=== PATIENT | female | born 1980 | race Caucasian/White ===

== ENCOUNTER 2020-11-09 10:39 | Outpatient (REF) | payer BC, SELFPAY ==
--- NOTE | 2020-11-09 10:15 | PAPFT_PTH ---
PATIENT: Shanice Del Rio LOC: [facility] U#:[id number] AGE/SX: 40/F ROOM: RE11/09/[address]: Swati Hugo DO : 1980 BED: DIS: 11/09/2020 SPEC #: [id number] RECD: 11/09/20 12:53 STATUS: FER REQ #: [id number] SARAH BETH: 11/09/20 10:[address]: Swati Hugo DEPT: [facility] Cytology RECD BY: Candi Ornelas ENTERED: 11/09/20 12:53 SP TYPE: PAPFT OTHR DR: Linnea Esposito Tissues: 1 - CX/ENDOCX FOR PAP SMEARS Procedures: PAP THIN PREP/UVM Screening HPV DNA PROBE Comments: [id number]
== END 2020-11-09 10:40 | disposition home or self-care (01) ==
LOC: LBN 10:39
PROVIDERS: Visit Provider Obstetrics & Gynecology
DX: Z12.4 Encounter for screening for malignant neoplasm of cervix (principal); Z11.51 Encounter for screening for human papillomavirus (HPV)
CPT/HCPCS: 88142; 87624

== ENCOUNTER 2020-12-03 00:41 | Outpatient (CLI) | payer BC, SELFPAY ==
--- NOTE | 2020-12-03 11:30 | DI.MAMMO_ITS ---
Exam(s) MAMMO SCREENING EXAM: MAMMO SCREENING CLINICAL HISTORY: screening TECHNIQUE: Mammograms were interpreted according to the usual protocol including computer analysis w [employer] CAD system, tomosynthesis and C-view imaging. COMPARISON: FINDINGS: The breasts are extremely dense. No dominant mass is identified in either breast. There is asymmetr y of the breast parenchyma with increased radiodensity in the upper outer quadrant of the right breas t compared to the left. There is a grouping of calcifications of the medial retroareolar portion of the right breast which co ntains 4 or 5 microcalcifications, these are not ideally visualized but are not clearly acinar microc alcifications. Leodan-like forms may be present. Additional evaluation with magnification views of thi s area is suggested. Additionally right breast ultrasound is recommended to evaluate the upper outer quadrant of the right breast for possible mass due to the asymmetry noted. IMPRESSION: additional mammographic views of the right breast and right breast ultrasound recommended as describ ed above. BI-RADS Category 0 - Assessment Incomplete: Need additional imaging evaluation Breast Density - Category D - Extremely dense
== END 2020-12-03 01:01 ==
PROVIDERS: Visit Provider Obstetrics & Gynecology
DX: Z12.31 Encounter for screening mammogram for malignant neoplasm of breast (principal); R92.8 Other abnormal and inconclusive findings on diagnostic imaging of breast; R92.0 Mammographic microcalcification found on diagnostic imaging of breast
CPT/HCPCS: 77063; 77067

== ENCOUNTER 2020-12-22 00:37 | Outpatient (CLI) | payer BC, SELFPAY ==
--- NOTE | 2020-12-22 10:30 | DI.MAMMO_ITS ---
Exam(s) MG MAMMO SCREEN CALL BACK UNI US BREAST RT COMPLETE EXAM: US BREAST RT COMPLETE CLINICAL HISTORY: MICROCALCIFICATIONS RT BREAST TECHNIQUE: Ultrasound performed using standard protocol. COMPARISON: US [facility] OB ULTRASOUND from 10/20/2014 FINDINGS: Additional mammographic views of the right breast and right breast ultrasound interpreted in conjunct ion. These examinations were obtained to evaluate microcalcifications identified on recent baseline examination in the medial retroareolar portion of the breast. Magnification spot compression views s how grouping of 5 microcalcifications, these are somewhat irregular in shape and variable in size. N eoplastic disease is a diagnostic possibility with this appearance. Breast ultrasound was performed of the entire right breast. No mass identified. No calcifications i dentified on ultrasound. There is an incidental 8 millimeter in diameter cyst simple cyst about 7 cm from the nipple in the 8 o'clock position in the breast. IMPRESSION: Suspicious microcalcifications of the right breast without ultrasound correlate. Biopsy is recommend ed, stereotactic technique recommended. BI-RADS Cat 4 - Suspicious Abnormality: Biopsy should be considered Breast Density - Category D - Extremely dense DATA REPOSITORY:
--- NOTE | 2020-12-22 11:00 | DI.US_ITS ---
Exam(s) MG MAMMO SCREEN CALL BACK UNI US BREAST RT COMPLETE EXAM: US BREAST RT COMPLETE CLINICAL HISTORY: MICROCALCIFICATIONS RT BREAST TECHNIQUE: Ultrasound performed using standard protocol. COMPARISON: US [facility] OB ULTRASOUND from 10/20/2014 FINDINGS: Additional mammographic views of the right breast and right breast ultrasound interpreted in conjunct ion. These examinations were obtained to evaluate microcalcifications identified on recent baseline examination in the medial retroareolar portion of the breast. Magnification spot compression views s how grouping of 5 microcalcifications, these are somewhat irregular in shape and variable in size. N eoplastic disease is a diagnostic possibility with this appearance. Breast ultrasound was performed of the entire right breast. No mass identified. No calcifications i dentified on ultrasound. There is an incidental 8 millimeter in diameter cyst simple cyst about 7 cm from the nipple in the 8 o'clock position in the breast. IMPRESSION: Suspicious microcalcifications of the right breast without ultrasound correlate. Biopsy is recommend ed, stereotactic technique recommended. BI-RADS Cat 4 - Suspicious Abnormality: Biopsy should be considered Breast Density - Category D - Extremely dense DATA REPOSITORY:
== END 2020-12-22 00:57 ==
PROVIDERS: Visit Provider Obstetrics & Gynecology
DX: R92.8 Other abnormal and inconclusive findings on diagnostic imaging of breast (principal); R92.0 Mammographic microcalcification found on diagnostic imaging of breast
CPT/HCPCS: 76642; 77063; 77067

== ENCOUNTER 2023-09-10 15:03 | Emergency (ER) | payer BC, SELFPAY ==
[2023-09-10 15:12] VITALS: BP 140/100; PULSE 115; RESP 18; TEMP 36.8
--- NOTE | 2023-09-10 17:06 | W.ED.GENAD ---
Discharge Plan Disposition Patient Disposition: Home Condition: Stable Discharge Details Chief Complaint: Orthopedic Clinical Impression: Foot pain, right Primary Care Provider: Linnea Esposito ED Provider: Tino Sterling Home Meds and New Rx's Prescriptions: No Action No Known Home Meds Discharge Instructions Additional Instructions: Your x-rays do not show any concerning findings at this time. I suspect you have plantar fasciitis which is inflammation of the soft tissues and tendons in your foot. Use the crutches that you have as needed You can take 600 mg of ibuprofen every 6 hours Follow-up with your primary care provider or express care if you are not improving within 2 weeks If you feel more ill or have new symptoms such as high fevers or if foot becomes red and hot to touch return to the emergency department HPI General Mode of arrival: ambulatory. Date/Time Provider Initiated Documentation: 09/10/23 15:16. Limitations to Documentation: no limitations. Information obtained by: patient. History of Present Illness 43 year old F presents to the emergency department with the chief complaint of right foot discomfort/swelling, described as moderate, Quality is described as aching, and is localized to the right and lower extremity. Patient reports no radiation. Patient started experiencing this day(s) (5) and it has been constant. Rest improves symptom(s), Movement worsens symptoms . Patient notes no other symptoms.. Patient did receive the following treatments prior to arrival, none Related Data Home Medications ?Medication ?Instructions ?Recorded ?Confirmed Unknown [No Known Home Meds] 11/09/20 Allergies Allergy/AdvReac Type Severity Reaction Status Date / Time No Known Allergies Allergy Unverified 12/18/14 11:12 General Stated Complaint: Orthopedic BRITTON: 4 Review of Systems All systems reviewed & are unremarkable except as noted in HPI and below Constitutional Constitutional: Denies chills, Denies fever(s) and Denies weakness Cardiovascular Cardiovascular: Denies chest pain Respiratory Respiratory: Denies cough Gastrointestinal Gastrointestinal: Denies vomiting Neurologic Neurologic: Denies weakness Exam Const General: no acute distress Orientation: alert [facility] Head: normal to inspection Ears: external ears normal General nose exam: external nose normal Mouth: moist mucous membranes Eyes General: appearance normal, both eyes and all related structures Neck Neck: normal visual inspection Resp Effort & Inspection: normal respiratory effort and able to speak in complete sentences Cardio Rate: regular rate Skin General skin exam: no rashes or lesions noted Neuro General: patient alert and patient oriented x3 Extrem General: full ROM and capillary refill normal Psych Mental Status: mental status grossly normal Course Vital Signs Vital signs: Vital Signs Temperature 36.8 C 09/10/23 15:12 Pulse 115 H 09/10/23 15:12 Respiratory Rate 18 09/10/23 15:12 Blood Pressure 140/100 H 09/10/23 15:12 Temperature 36.8 C 09/10/23 15:12 Temperature Source Temporal Artery Scan 09/10/23 15:12 Pulse 115 H 09/10/23 15:12 Respiratory Rate 18 09/10/23 15:12 Blood Pressure 140/100 H 09/10/23 15:12 Medical Decision Making 43-year-old female who denies any significant past medical history comes in with right foot pain since last Sunday. She says on Sunday she had to wear shoes that were too small for her and her right foot is been hurting since. She has had some mild swelling as well of the foot. Denies any other systemic symptoms. She appears well on exam speaking in full sentences. She has swelling on the plantar surface without erythema or warmth mild tenderness, no full range of motion of the ankle and toes, intact sensation and pulses, no calf tenderness. Suspect plantar fasciitis versus stress injury, will obtain x-rays to exclude fracture. No findings on exam or history to suggest infectious etiology and her leg is not swollen has no calf tenderness so doubt DVT. negative xray, patient stable. suspect plantar fascitis, will have her f/u with pcp and return precautions given Differential Diagnosis Differential Diagnosis: Plantar fasciitis, stress injury, Imaging Data Radiologic Study: Attestation: I personally reviewed and interpreted this imaging study as follows: Imaging: X-Ray Radiologist's impression: No acute findings Quality:SDOH Health Related Social Needs: No Data to Display PFSH All Active Problems (Updated 09/10/23 @ 18:02 by Tino Sterling MD) Foot pain, right (Acute) Breast calcification, right (Acute) Abnormal mammogram of right breast (Acute) Heavy menstrual bleeding (Acute) Well woman exam with routine gynecological exam (Acute) Family History Mother Colorectal cancer Social History Smoking/Tobacco Use Status: Never Smoking risk assessment performed?: Yes Alcohol Intake: never Housing: apartment Do you feel safe at home: Yes Do you feel safe in your relationship?: Yes
--- NOTE | 2023-09-10 17:42 | DI.RAD_ITS ---
Exam(s) XR FOOT RT COMPLETE EXAM: XR FOOT RT COMPLETE CLINICAL HISTORY: foot pain. TECHNIQUE: 2D digital imaging was performed. Three views. COMPARISON: No exams were available for comparison FINDINGS: BONES: No acute fracture is present. No bony destructive lesion is seen. Small enthesophyte at Achil les insertion. JOINTS: No dislocation present. SOFT TISSUE: Normal. IMPRESSION: Unremarkable radiographs of the right foot. DATA REPOSITORY: RADIATION DOSE DELIVERED:
== END 2023-09-10 18:22 | disposition home or self-care (01) ==
PROVIDERS: Emergency Provider Emergency Medicine
DX: M79.671 Pain in right foot (principal)
CPT/HCPCS: 99283; 73630

== ENCOUNTER 2024-02-15 18:44 | Emergency (ER) | payer BC, SELFPAY ==
[2024-02-15 18:47] VITALS: BP 152/86; PULSE 122; RESP 18; TEMP 36.6; O2SAT 98
--- NOTE | 2024-02-15 19:07 | W.ED.GENAD ---
Discharge Plan Disposition Patient Disposition: Home Condition: Stable Discharge Details Clinical Impression: Injury of conjunctiva and corneal abrasion of right eye w/o FB Primary Care Provider: None,None ED Provider: Larry Castro Home Meds and New Rx's Prescriptions: No Action No Known Home Meds Discharge Instructions Instructions: Erythromycin (Ophthalmic), Corneal Abrasion ED Additional Instructions: You were seen in the emergency department for the corneal abrasion of your right eye. Please use the provided erythromycin ophthalmic ointment 4 times per day for the next 5 days. Please use therapeutic dosing of Tylenol (acetamenophen) & Advil (ibuprofen) in an alternating fashion as follows: Take 1000mg of Tylenol every 6 hours without missing doses- that is 4 times per day. Half-Way in between the Tylenol dosings, take 400-600mg of Advil also on a 6 hour schedule, that is also 4 times per day. The daily maximum dosing of Tylenol is 4000mg, and the daily maximum dosing of Advil is 2400mg. This is safe to do for weeks. Please note that some common cold medications & prescription pain medications may contain acetamenophen and you need to read OTC drug labels and factor that in to maximum daily dosings. It may be more comfortable to patch the eye at night and use cool compresses for relief, use the tetracaine drops 2 drops before bed tonight and 1 drop in the morning but then throw the medication out as we discussed Discharge Data Discharge Date/Time-TO BE ENTERED AT DEPARTURE: 02/15/24 19:55 HPI General Date/Time Provider Initiated Documentation: 02/15/24 18:57. HPI Narrative: 43 year-old female presents to ED today by POV/ambulating with a chief complaint of injury to R eye, was trimming moi and a branch hit her with onset at 1645 today. Quality described as mild blurry vision, eye irritation, no radiation to vision loss, discharge, headache. Severity is described as moderate. Palliating factors include nothing specific attempted. Provoking factors include nothing specific. Patient not anticoagulated. Related Data Home Medications ?Medication ?Instructions ?Recorded ?Confirmed Unknown [No Known Home Meds] 11/09/20 02/15/24 Allergies Allergy/AdvReac Type Severity Reaction Status Date / Time No Known Allergies Allergy Unverified 02/15/24 18:49 General Stated Complaint: EyeProblem BRITTON: 4 Review of Systems All systems reviewed & are unremarkable except as noted in HPI and below Exam Narrative Exam Narrative: GENERAL APPEARANCE: Well-nourished, non-toxic, awake and alert, atraumatic, no acute distress. SKIN: Warm, pink, dry, intact, without rashes/lesions/ulcerations. HEAD: Normocephalic, atraumatic, normal hair distribution for gender/age. EYES: Normal conjunctiva, no exudates on lids/lashes, no discharge, no globe rupture, vision grossly intact, there is a large corneal abrasion centrally to the right eye, left eye benign ENT: Nares patent, no circumoral cyanosis, no facial swelling NECK: Supple, trachea midline, painless cervical ROM. LUNGS/CHEST: Non-labored respirations, normal A/P diameter, symmetrical expansion, no chest wall deformity HEART (CV/PV): No peripheral edema, no JVD. ABDOMEN: Soft, non-distended, no guarding. MSK: Normal ROM, no swelling/deformity to bilateral UEs or LEs, moving all extremities without weakness, no cyanosis, spine midline without tenderness, normal curvature. NEURO: Mental Status AAOx4 - alert to person, place, time, events No facial droop, no forehead involvement. Motor: No focal weakness - strength 5/5 in bilateral UEs and LEs, proximal and distal, symmetric. Sensory: sensation intact to light touch globally. Gait normal: patient ambulated without ataxia into ED room. PSYCH: euthymic, cooperative, pleasant, appropriate speech Course Vital Signs Vital signs: Vital Signs Temperature 36.6 C 02/15/24 18:47 Pulse 122 H 02/15/24 18:47 Respiratory Rate 18 02/15/24 18:47 Blood Pressure 152/86 H 02/15/24 18:47 Pulse Oximetry 98 02/15/24 18:47 Temperature 36.6 C 02/15/24 18:47 Temperature Source Oral 02/15/24 18:47 Pulse 122 H 02/15/24 18:47 Respiratory Rate 18 02/15/24 18:47 Blood Pressure 152/86 H 02/15/24 18:47 Blood Pressure Position Sitting 02/15/24 18:47 Pulse Oximetry 98 02/15/24 18:47 Oxygen Delivery Method Room Air 02/15/24 18:47 Oxygen Flow Rate 0 02/15/24 18:47 Pain Level 0 02/15/24 18:47 Medical Decision Making This dictation utilizes [id number] dictation software and may contain unedited grammatical errors. 43 year-old female presents to ED today by POV/ambulating with a chief complaint of injury to R eye, was trimming moi and a branch hit her with onset at 1645 today. Quality described as mild blurry vision, eye irritation, no radiation to vision loss, discharge, headache. Severity is described as moderate. Palliating factors include nothing specific attempted. Provoking factors include nothing specific. Patients' medical history: noncontributory. Family and social history: noncontributory. Pertinent exam findings / vital signs include large corneal abrasion centrally to the right eye, vision grossly intact. Differential / pathologies of concern include corneal abrasion, not globe rupture, not vision loss, not foreign body. Diagnostic studies of: -Fluorescein eye exam. Interventions of: -Tdap, erythromycin ointment. ED Course/Assessment/Plan: 43-year-old female presents after getting hit in the eye with a branch that she was trimming moi, has a large corneal abrasion, no vision compromise. Started on erythromycin ointment and updated Tdap, strict return criteria for any vision loss or discharge despite. Findings not consistent with globe rupture, vision loss. Disposition of injury of conjunctiva and corneal abrasion of right eye w/o foreign body. Patient verbalized understanding of the plan and return to ED criteria and engaged in shared decision making. Medical Records Medical records reviewed: Yes I reviewed the patient's medical records. Quality:SDOH Health Related Social Needs: No Data to Display PFSH All Active Problems (Updated 02/15/24 @ 19:18 by DARIEL Whittaker) Injury of conjunctiva and corneal abrasion of right eye w/o FB (Acute) Breast calcification, right (Acute) Abnormal mammogram of right breast (Acute) Heavy menstrual bleeding (Acute) Well woman exam with routine gynecological exam (Acute) Family History Mother Colorectal cancer Social History Smoking/Tobacco Use Status: Never Smoking risk assessment performed?: Yes Alcohol Intake: never Drug use: Never Substance use type: does not use Housing: apartment Do you feel safe at home: Yes Do you feel safe in your relationship?: Yes
[2024-02-15] MEDS: Diph,Pertuss(Acell),Tet Vac/Pf 0.5 ML SYR IM (19:08)
[2024-02-15] MEDS: Tetracaine 0.5% 4 ML BTL OP (19:10)
[2024-02-15] MEDS: Fluorescein STRIPS 100/BOX 1 MG OP (19:13)
[2024-02-15] MEDS: Erythromycin Ophth Oint 3.5 GM TUBE OP (19:19)
--- OUTSIDE RECORDS SUMMARY | 2024-02-15 19:42 | XMS_ITS | Encounter Summary ---
Author Organization [facility] Address [address] [place] [address] Care Team Providers Care Industrial Mechanic Name Role Phone Unavailable Primary Care Provider Unavailabl e Encounter Details Date Type Department Care Team (Late st Contact Info) Description 10/30/2007 Before PRISM Converted Visit (Maple) [facility] - Maple conversion [address] [place] [address] Domonique Dubon, DAMARIS Social History Tobacco Use Types Packs/Day Years Used Date Smoking Tobacco: Never Assessed Comments Unknown Sex and Gender Information Value Date Recorded Sex Assigned at Not on file Legal Sex Female 18:38 EST Gender Identity Not on file Sexual Orientation Not on file documented as of this encounter Plan of Treatment Not on file documented as of this encounter Procedures Procedure Name Priority Date/Time Associated Diagnosis Comments CYTOPATHOLOGY Routine 10/30/2007 0:00 EDT documented in this encounter Results * CYTOPATHOLOGY (10/30/2007 0:00 EDT) Pathology Report: CYTOPATHOLOGY REPORT ? Reports generated via electronic interface contain original data; ? however they are lacking the format of the original report. ? Caution should be taken when reading/interpreti ng unformatted reports. ? Name: ? BUCK, KATI ? Accession #: ? [id number] ? : ? 1980 (Age: 27) ??F ?Collect Date: ? 10/30/2007 ? Location: ? [facility] ? Receive Date: ? 10/31/2007 ? Provider: ?DOMONIQUE M AMRITA PROCESSING SUPERVISOR ? Copy to: ? Specimen/Source: ?ThinPrep Pap Test, Cervix/Endocervix, processed on [facility] ThinPrep Imaging System, with manual evaluation ? Last Menstrual Period: ? 09/09/08 ? Other: ? HPVA - HPV testing requested if ASC-US on the current ThinPrep Pap test. ? SPECIMEN ADEQUACY ? Satisfactory for Evaluation ? - transformation zone component present ? - scant squamous epithelial component ? GENERAL CATEGORIZATION ? Negative for Intraepithelial Lesion or Malignancy ? Document reviewed and electronically signed by: ? [place], [place](ASCP) ? Report Date: ??11/04/2007 14:10 ? End of Report ? CRISTINA BARNETT 10/30/2007 10/31/2007 us Domonique Dubon PROCESSING SUPERVISOR PATHOLOGY ORDERABLES Final Re sult CRISTINA BARNETT [address] [place] [address] documented in this encounter Visit Diagnoses Not on filedocumented in this encounter
--- OUTSIDE RECORDS SUMMARY | 2024-02-15 19:42 | XMS_ITS | Clinical Summary ---
Author Organization [facility] [place] [address] Care Team Providers Care Ag Service Manager Name Role Phone Swati Hugo DO Primary Care Provider [phone] Social History Tobacco Use Types Packs/Day Years Used Date Smoking Tobacco: Never Assessed Sex and Gender Information Value Date Recorded Sex Assigned at Not on file Gender Identity Not on file Sexual Orientation Not on file Plan of Treatment Health Maintenance Due Date Last Done Comments HIV screen 1998 Hepatitis C Screening 1998 Hepatitis B vaccine (0-59 yrs) (1) 1999 Tetanus/Diphtheria/Pertussis Vaccines (1 - Tdap) 03/24 HPV test 2010 PAP Smear 2010 Breast Cancer Share Decision Needed 2020 Breast Cancer screening 2020 Covid-19 Vaccine ( - 2023-25 season) 2023 Influenza (Flu) vaccine (1 o f 1 - Influenza standard series) 10/07/2023 Medical Devices Implanted Type Area Funeral Director And Embalmer Device Identifier Shelf Expiration Date Model / Serial / Lot Breast Clip- Implanted:Qty: 1 on 12/31/2020 by Jolanta Woo MD Breast Clip Right: Breast SMARK-EVIV [id number] Description:SECURMARK FOR EV MOISES TITANIUM MARKER - CYLINDER Care Teams Ag Service Manager Relationship Specialty Start Date End Date Swati Hugo DO [facility] [place] [id number] PCP - General Obstetrics and Gynecology 12/31/20
--- OUTSIDE RECORDS SUMMARY | 2024-02-15 19:42 | XMS_ITS | Encounter Summary ---
Author Organization [facility] Address [address] [place] [address] Care Team Providers Care Enrollment Management Director Name Role Phone Unavailable Primary Care Provider Unavailabl e Encounter Details Date Type Department Care Team (Latest Contact Info) Description 05/12/2014 10:58 EDT - 05/12/2014 23:59 EDT Hospital Encounter [facility] - [address] [address] Unknown, Provider, MD Discharge Disposition: Home or Self Care Social History Tobacco Use Types Packs/Day Years Used Date Smoking Tobacco: Never Assessed Comments Unknown Sex and Gender Information Value Date Recorded Sex Assigned at Not on file Legal Sex Female 18:38 EST Gender Identity Not on file Sexual Orientation Not on file documented as of this encounter Discharge Disposition Disposition Code Departure Means Destination Home or Self Usp documented in this encounter Plan of Treatment Not on file documented as of this encounter Visit Diagnoses Not on filedocumented in this encounter
--- OUTSIDE RECORDS SUMMARY | 2024-02-15 19:42 | XMS_ITS | Referral Summary ---
Author Organization [facility] Address [address] [place] [address] Care Team Providers Care Warehouse Helper Name Role Phone Unavailable Primary Care Provider Unavailabl e Social History Tobacco Use Types Packs/Day Years Used Date Smoking Tobacco: Never Assessed Comments Unknown Sex and Gender Information Value Date Recorded Sex Assigned at Not on file Legal Sex Female 18:38 EST Gender Identity Not on file Sexual Orientation Not on file Plan of Treatment Not on file
--- OUTSIDE RECORDS SUMMARY | 2024-02-15 19:42 | XMS_ITS | Encounter Summary ---
[place] [address] Care Team Providers Care Strand Galvanizer Name Role Phone Unavailable Primary Care Provider Unavailabl e Encounter Details Date Type Department Care Team (Late st Contact Info) Description 12/28/2020 [place] [phone] Zainab El Social History Tobacco Use Types Packs/Day Years [...]
--- OUTSIDE RECORDS SUMMARY | 2024-02-15 19:42 | XMS_ITS | Encounter Summary ---
Author Organization [facility] Address [address] [place] [address] Care Team Providers Care Jersey Knitter Name Role Phone Unavailable Primary Care Provider Unavailabl e Encounter Details Date Type Department Care Team (Late st Contact Info) Description 11/10/2020 Lab Requisition [facility] Pathology & Laboratory Medicine - [facility] [address] [place] [address] Swati Hugo [address] [place] [address] [place] [address] Encounter for other general examination Social History Tobacco Use Types Packs/Day Years [...] Procedure Name Priority Date/Time Associated Diagnosis Comments PAP TEST Today 11/09/2020 10:15 EDT Encounter for other general examination HPV DNA DETECTION WITH GENOTYPING, PCR Today 11/09/2020 10:15 EDT Encounter for other general examination documented in this encounter Results * HUMAN PAPILLOMAVIRUS (HPV) DETECTION-HIGH RISK TYPES (11/09/2020 10:15 EDT) HPV other High Risk types, PCR Negative Negative 11/25/2020 7:35 EDT [facility] Comment:No E6 or E7 mRNA is detected from HPV types 16,18,31,33,35,39,45,51,52,56,58,59,66, and 68 by competitive intelligence analyst mediated amplification. Papanicolaou smear specimen (specimen) CERVIX UTERI STRUCTURE / Unknown 11/09/2020 10:15 EDT 11/23/2020 13:44 EDT Swati Hugo MICROBIOLOGY - GENERAL ORDERABLE S Final Result [facility] [address] [place] [address] * PAP TEST (11/09/2020 10:15 EDT) Specimens A. Cervix and/or Endocervix , ThinPrep Imaging System with Manual Evaluation 11/25/2020 7:35 T [facility] Specimen Adequacy Satisfactory for Evaluation - transformation zone component present Scant squamous epithelial component, contamination present, possibly lubricant 11/25/2020 7:35 T [facility] General Categorization Negative for intraepithelial lesion or malignancy 11/25/2020 7:35 T [facility] Attestation . 11/25/2020 7:35 [facility] at 0735 Clinical History See below 11/26/19 7:35 T [facility] HPV The result for the Human Papillomavirus (HPV) Detection-High Risk Types is Negative. No E6 or E7 mRNA is detected from HPV types 16,18,31,33,35,39 ,45,51,52,56,58,5 9,66, and 68 by competitive intelligence analyst mediated amplification.Babs ting was performed on specimen [id number] and was resulted on 11/25/2020 0734 EDT by ARTUR, LAB INSTRUMENT RESULTS IN 11/25/2020 7:35 EDT [facility] Performing Lab [facility] 11/25/2020 7:35 T [facility] Scanned Images 11/25/2020 7:35 T [facility] Papanicolaou smear specimen (specimen) CERVIX UTERI STRUCTURE / Unknown 11/09/2020 10:15 EDT 11/10/2020 14:47 EDT us Swati Hugo PATHOLOGY ORDERABLES Final Resul t [facility] [address] [place] [address] documented in this encounter Visit Diagnoses Diagnosis Encounter for other general examination documented in this encounter
--- OUTSIDE RECORDS SUMMARY | 2024-02-15 19:42 | XMS_ITS | Encounter Summary ---
Author Organization [facility] Address [facility] [place] [address] Care Team Providers Care Billing Adjudicator Name Role Phone Swati Hugo DO Primary Care Provider [phone] Encounter Details Date Type Department Care Team (Latest Contact Info) Description 12/31/2020 1:00 PM EST - 12/31/2020 11:59 PM EST Hospital [place] [id number] Jolanta Woo MD [facility] [place] [address] Abnormal finding on breast imaging Discharge Disposition: Home Social History Tobacco Use Types Packs/Day Years Used Date Smoking Tobacco: Never Assessed Sex and Gender Information Value Date Recorded Sex Assigned at Not on file Gender Identity Not on file Sexual Orientation Not on file documented as of this encounter Progress Notes * Lizette Conrad MD - 12/31/2020 7:56 AM EST Pre-procedure note for needle breast biopsies performed in radiology. Procedure date: Today Procedure type: right breast stereotactic biopsy Allergies: Patient has no allergy information on record. Medications: No current outpatient medications on file. Anticoagulation status: none stopped on: N/A Imaging reviewed and procedural plan approved by Dr. Lizette Conrad MD documented in this encounter Plan of Treatment Not on file documented as of this encounter Procedures Procedure Name Priority Date/Time Associated Diagnosis Comments SURGICAL PATHOLOGY REPORT Routine 12/31/2020 1:46 PM EST SPECIMEN TO PATHOLOGY Routine 12/31/2020 1:46 PM EST MAMMO STEREOTACTIC BIOPSY RIGHT Routine 12/31/2020 1:45 PM EST Abnormal finding on breast imaging documented in this encounter Results * Surgical Pathology Report (12/31/2020 1:46 PM EST) Final Diagnosis [id number] ? Location: 3L The signing pathologist has (i) examined the relevant preparation(s) for the specimen(s) and (ii) rendered or confirmed the diagnosis(es). . 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 of Pathology, [place], [place] DISCUSSION Additional levels (A1) were examined. SPECIMEN(S) SUBMITTED A - Right breast stereotactic biopsy (multiple) Report to: Swati Hugo CLINICAL INFORMATION Calcifications. FCC, DCIS SPECIMEN PROCESSING A - Received in two containers: 1 - Labeled/Fixative: Right breast stereotactic biopsy calcs, formalin Quantity/Size: Single, 2.1 x 0.3 cm. Tissue Description: Houston-pink, partly hemorrhagic needle core biopsy. Submitted in: A1 2 - Labeled/Fixative: Right breast stereotactic biopsy, no calcs, formalin. Quantity/Size: Multiple, from 0.5 x 0.3 cm to 2.4 x 0.3 cm. Tissue Description: Partly hemorrhagic, pink-white needle core biopsies. Submitted in: A2-A6 Sections/Processing: Entirely submitted in 6 cassettes labeled A1-A6. Ischemic Time: Six minutes ??pps 01/03/2021 2:36 PM EST [facility] BREAST STRUCTURE / Unknown 12/31/2020 1:46 PM EST 12/31/2020 1:46 PM EST Jolanta Woo MD PATHOLOGY/CYTOLOGY ORDERABLES Performing Organization Address [facility] [place] [address] * Specimen to Pathology (12/31/2020 1:46 PM EST) AP Specimen 12/31/2020 1:46 PM EST 12/31/2020 1:46 PM EST Narrative [facility] - 12/31/2020 1:46 PM EST Specimen requisition ordered. ??Separate Pathology report to follow Jolanta Woo MD PATHOLOGY/CYTOLOGY ORDERABLES Performing Organization Address [facility] Co de Phone Number [facility] [place] [address] * Mammo Stereotactic Biopsy Right (12/31/2020 1:45 PM EST) Anatomical Region Laterality Modality Breast N/A Mammography Impressions 01/03/2021 2:54 PM EST Concordant benign result RECOMMENDATION: Annual screening. I phoned these results and recommendations to the patient on 01/03/2021 at 1500 hours. REVIEW PATH CONFERENCE?: No Thank you for letting us participate in the care of this patient. ??If you are a health care provider and have any questions regarding this report, please contact the number below. ??For patients who have questions please contact the health palliative care coordinator that requested your imaging first. ? Narrative 01/03/2021 2:54 PM EST STEREOTACTIC GUIDED VACUUM ASSISTED BIOPSY OF THE RIGHT BREAST CLINICAL HISTORY: abnormal mammo Microcalcifications right breast 3:00 radian 4 cm from the nipple spanning 0.2 cm Procedural details: Informed consent was obtained and a time out procedure was performed per protocol. The patient gave permission to proceed. Using sterile technique and local anesthetic (less than 20cc's of 1% lidocaine) a biopsy was performed using tomographic guidance. Multiple core biopsy specimens were obtained using a 9g vacuum assist device. 12 core biopsy specimens were obtained using a Picodeon Eviva 9g device. Biopsy specimens were radiographed. ??The abnormality was present on the specimen digital radiograph. A SellanApprk Eviva cylinder marker clip was placed. Cranio-caudal and lateral digital mammography was performed to determine biopsy marker placement. ??The marker was shown to be at the biopsy site. COMPLICATIONS: None. PROCEDURAL ATTESTATION: Resident: Houston Koo performed the procedure with the resident observing. IMAGING DIFFERENTIAL DIAGNOSIS: Fibrocystic change, ductal carcinoma in situ PATHOLOGIC DIAGNOSIS: Benign, pseudoangiomatous stromal hyperplasia. Calcifications associated with blood vessel wall. Jolanta Woo MD IMG MAMMO ORDERABL ES documented in this encounter Visit Diagnoses Diagnosis Abnormal finding on breast imaging Other (abnormal) findings on radiological examination of breast documented in this encounter Administered Medications Inactive Administered Medications - up to 3 most recent administrations Medication Order MAR Action Action Date Dose Rate Site lidocaine (Xylocaine) 1% (10 mg/mL) injection 200 mg 200 mg (20 mL), Intradermal, ONCE, 1 dose, On 12/31/20 at 1330, Routine Given 12/31/2020 1:30 PM EST 200 mg documented in this encounter Care Teams Billing Adjudicator Relationship Specialty Start Date End Date Swati Hugo DO [address] [place] [address] PCP - General Obstetrics and Gynecology 12/31/20 documented as of this encounter
--- OUTSIDE RECORDS SUMMARY | 2024-02-15 19:42 | XMS_ITS | Encounter Summary ---
Author Organization [facility] Address [place] [address] Care Team Providers Care Sales Review Clerk Name Role Phone Unavailable Primary Care Provider Unavailabl e Encounter Details Date Type Department Care Team (Late st Contact Info) Description 12/22/2020 12:05 AM EST Ancillary Procedure Radiology Library [place] [phone] Swati Hugo DO [address] [place] [address] [place] [address] Social History Tobacco Use Types Packs/Day Years Used Date Smoking Tobacco: Never Assessed Sex and Gender Information Value Date Recorded Sex Assigned at Not on file Gender Identity Not on file Sexual Orientation Not on file documented as of this encounter Plan of Treatment Not on file documented as of this encounter Procedures Procedure Name Priority Date/Time Associated Diagnosis Comments FILM LIBRARY-STORAGE ONLY US BREAST Routine 12/22/2020 12:05 AM EST documented in this encounter Results * Film Library Storage Only US Breast (12/22/2020 12:05 AM EST) Narrative RAD - 12/27/2020 2:01 PM EST This exam is auto-finalizing. It's purpose is for storage only. Swati MORATAYA FILM LIBRARY ORD ERABLES [facility] [place] documented in this encounter Visit Diagnoses Not on filedocumented in this encounter
--- OUTSIDE RECORDS SUMMARY | 2024-02-15 19:42 | XMS_ITS | Encounter Summary ---
Author Organization [facility] [place] [address] Care Team Providers Care Diabetes Manager Name Role Phone Unavailable Primary Care Provider Unavailabl e Encounter Details Date Type Department Care Team (Late st Contact Info) Description 12/03/2020 Ancillary Procedure Radiology Library at [facility] [place] [phone] Swati Hugo DO [address] [place] [address] [place] [address] Social History Tobacco Use Types Packs/Day Years Used Date Smoking Tobacco: Never Assessed Sex and Gender Information Value Date Recorded Sex Assigned at Not on file Gender Identity Not on file Sexual Orientation Not on file documented as of this encounter Plan of Treatment Not on file documented as of this encounter Procedures Procedure Name Priority Date/Time Associated Diagnosis Comments FILM LIBRARY STORAGE ONLY MAMMO Routine 12/03/2020 12:00 AM EDT documented in this encounter Results * Film Library- Storage Only Mammo (12/03/2020 12:00 AM EDT) Narrative RAD - 12/27/2020 2:00 PM EST This exam is auto-finalizing. It's purpose is for storage only. Swati MORATAYA FILM LIBRARY ORD ERABLES [facility] [place] documented in this encounter Visit Diagnoses Not on filedocumented in this encounter
--- OUTSIDE RECORDS SUMMARY | 2024-02-15 19:42 | XMS_ITS | Encounter Summary ---
Author Organization [facility] Address [address] [place] [address] Care Team Providers Care A Auxiliary Name Role Phone Unavailable Primary Care Provider Unavailabl e Encounter Details Date Type Department Care Team (Late st Contact Info) Description 05/05/2011 Results Only [facility] Laboratory Services - [facility] ([facility]) [address] [place], [place] [address] Falguni Grullon CNM [address] [place] [id number] Social History Tobacco Use Types Packs/Day Years [...] Name Priority Date/Time Associated Diagnosis Comments PAP TEST- RESULT ONLY Routine 05/05/2011 0:00 EDT documented in this encounter Results * PAP TEST- RESULT ONLY (05/05/2011 0:00 EDT) Pathology Report: CYTOPATHOLOGY REPORT Reports generated via electronic interface contain original data; however they are lacking the format of the original report. Caution should be taken when reading/interpreti ng unformatted reports. Name: ? KATI DEL RIO ? Accession #: ? [id number] ? : ? 1980 (Age: 31) ??F ?Collect Date: ? 05/05/2011 ? Location: ? [facility] ? Receive Date: ? 05/08/2011 ? Provider: FALGUNI GRULLON CNM Copy to: ? Final Report SPECIMEN ADEQUACY ? Satisfactory for Evaluation - transformation zone component present GENERAL CATEGORIZATION ? Negative for Intraepithelial Lesion or Malignancy INTERPRETATION ? Reactive cellular changes associated with inflammation present (includes repair). Last Menstural Period: 03/08/11 Menstural/Pregnanc y Status: ?? Specimen/Source: ??Pap Test, Cervix/Endocervix, ThinPrep Imaging System with manual evaluation Document reviewed and electronically signed by: ? ISAIAS VAUGHN MD ? Report ??Date: 05/13/2011 14:24 HPV with Pap Test ? Date Ordered: ? 05/12/2011 ? Status: ?? Signed Out ?Date Complete: ? 05/17/2011 ? By: ??System Interface ? Date Reported: ? 05/17/2011 ? Interpretation RESULT: Negative for HPV. No E6 or E7 mRNA is detected from HPV types 16,18,31,33,35, 39,45,51,52,56,58, 59,66, and 68 by senior informatica etl developer mediated amplification. Comments Document reviewed and electronically signed by: ? System Interface ? Report date: 05/17/2011 By the signature above, the attending physician certifies that he/she has personally conducted a gross and/or microscopic examination of the described specimens and rendered or confirmed the above diagnosis. End of Report [facility] 05/05/2011 05/08/2011 us Falguni ARMENDARIZM PATHOLOGY ORDERABLES Final Resul t [facility] [address] [place] [address] documented in this encounter Visit Diagnoses Not on filedocumented in this encounter
--- OUTSIDE RECORDS SUMMARY | 2024-02-15 19:42 | XMS_ITS | Encounter Summary ---
Author Organization [facility] Address [address] [place] [address] Care Team Providers Care Manager Interface Name Role Phone Unavailable Primary Care Provider Unavailabl e Encounter Details Date Type Department Care Team (Late st Contact Info) Description 05/12/2014 Results Only [facility] Laboratory Services - [facility] [address] [place], [place] [id number] Falguni Grullon CNM [address] [place], [place] [phone] Social History Tobacco Use Types Packs/Day Years [...] Diagnosis Comments PAP TEST- RESULT ONLY Routine 05/12/2014 0:00 EDT documented in this encounter Results * PAP TEST- RESULT ONLY (05/12/2014 0:00 EDT) Pathology Report: CYTOPATHOLOGY REPORT Reports generated via electronic interface contain original data; however they are lacking the format of the original report. Caution should be taken when reading/interpret ing unformatted reports. Name: ? KATI DEL RIO ? Accession #: ? [id number] ? : ? 1980 (Age: 34) ??F ?Collect Date: ? 05/12/2014 ? Location: ? [facility] ? Receive Date: ? 05/13/2014 ? Provider: FALGUNI GRULLON CN Copy to: TRIP BUSTILLOS MD ? Final Report SPECIMEN ADEQUACY ? Satisfactory for Evaluation - transformation zone component present GENERAL CATEGORIZATION ? Epithelial Cell Abnormality INTERPRETATION ? Squamous Cell Abnormality - Atypical squamous cells, undetermined significance (ASC-US). EDUCATIONAL NOTES/RECOMMENDAT IONS ? [facility] recommends following ASCCP's 2012 Updated Consensus Guidelines for the Management of Abnormal Cervical Cancer Screening Tests and Cancer Precursors (JLGTD, 2013; 17(5):S1-S27). ??Consensus guidelines are available online at www.asccp.org. Last Menstrual Period: 01/29/14 Menstrual/Pregnan cy Status: ?? Specimen/Source: ??Pap Test, Cervix/Endocervix , ThinPrep Imaging System with manual evaluation Document reviewed and electronically signed by: ? ALBERT JOSEPH MD ? Report ??Date: 05/22/2014 16:30 HPV with Pap Test ? Date Ordered: ? 05/22/2014 ? Status: ?? Signed Out ?Date Complete: ? 06/04/2014 ? By: ??System Interface ? Date Reported: ? 06/04/2014 ? Interpretation RESULT: Negative for HPV. No E6 or E7 mRNA is detected from HPV types 16,18,31,33,35, 39,45,51,52,56,58 ,59,66, and 68 by account development representative mediated amplification. Comments Document reviewed and electronically signed by: ? System Interface ? Report date: 06/04/2014 By the signature above, the attending physician certifies that he/she has personally conducted a gross and/or microscopic examination of the described specimens and rendered or confirmed the above diagnosis. End of Report [facility] 05/12/2014 05/13/2014 us Falguni Grullon [facility] PATHOLOGY ORDERABLES Final Resul t [facility] [address] [place] [address] documented in this encounter Visit Diagnoses Not on filedocumented in this encounter
--- OUTSIDE RECORDS SUMMARY | 2024-02-15 19:42 | XMS_ITS | Clinical Summary ---
Author Organization [facility] Address [address] [place] [address] Care Team Providers Care Piano And Organ Refinisher Name Role Phone Unavailable Primary Care Provider Unavailabl e Social History Tobacco Use Types Packs/Day Years Used Date Smoking Tobacco: Never Assessed Comments Unknown Sex and Gender Information Value Date Recorded Sex Assigned at Not on file Legal Sex Female 18:38 EST Gender Identity Not on file Sexual Orientation Not on file Plan of Treatment Health Maintenance Due Date Last Done Comments Hepatitis C Screen 1980 Hepatitis B Vaccine (1 of 3 - 19+ 3-dose series) 03/24 COVID-19 Vaccine (2023- season) 2023
--- OUTSIDE RECORDS SUMMARY | 2024-02-15 19:42 | XMS_ITS | Encounter Summary ---
Author Organization [facility] Address [address] [place] [address] Care Team Providers Care Plate Molder Name Role Phone Unavailable Primary Care Provider Unavailabl e Encounter Details Date Type Department Care Team (Late st Contact Info) Description 12/28/2008 Orders Only [facility] Laboratory Services - [facility] ([facility]) [address] [place] [address] Domonique Dubon, DAMARIS Social History Tobacco Use [...] Priority Date/Time Associated Diagnosis Comments CYTOPATHOLOGY Routine 12/28/2008 0:00 EST documented in this encounter Results * CYTOPATHOLOGY (12/28/2008 0:00 EST) Pathology Report: CYTOPATHOLOGY REPORT ? Reports generated via electronic interface contain original data; ? however they are lacking the format of the original report. ? Caution should be taken when reading/interpreti ng unformatted reports. ? Name: ? BUCK, KATI ? Accession #: ? [id number] ? : ? 1980 (Age: 28) ??F ?Collect Date: ? 12/28/2008 ? Location: ? [facility] ? Receive Date: ? 12/29/2008 ? Provider: ?DOMONIQUE M AMRITA RETAIL BANKER ? Copy to: ? Specimen/Source: ?Pap Test, Cervix/Endocervix, ThinPrep Imaging System ? with manual evaluation ? Last Menstrual Period: ? 10/27/09 ? Other: ? HPVA - HPV testing requested if ASC-US on the current ThinPrep Pap test. ? SPECIMEN ADEQUACY ? Satisfactory for Evaluation ? - transformation zone component present ? GENERAL CATEGORIZATION ? Negative for Intraepithelial Lesion or Malignancy ? Document reviewed and electronically signed by: ? Tracy Jasmeet, [place](ASCP) ? Report Date: ??01/04/2009 15:15 ? End of Report ? [facility] 12/28/2008 12/29/2008 us Domonique Dubon RETAIL BANKER PATHOLOGY ORDERABLES Final Re clair [facility] [address] [place] [address] documented in this encounter Visit Diagnoses Not on filedocumented in this encounter
--- OUTSIDE RECORDS SUMMARY | 2024-02-15 19:42 | XMS_ITS | Encounter Summary ---
Author Organization [facility] Address [address] [place] [address] Care Team Providers Care Mohs Surgeon Name Role Phone Unavailable Primary Care Provider Unavailabl e Encounter Details Date Type Department Care Team (Late st Contact Info) Description 09/08/2005 Results Only [facility] - Map conversion [address] [place] [address] Falguni Grullon CNM [address] [place], [place] [id number] Social History Tobacco Use Types Packs/Day Years [...] Priority Date/Time Associated Diagnosis Comments CYTOPATHOLOGY Routine 09/08/2005 0:00 EDT documented in this encounter Results * CYTOPATHOLOGY (09/08/2005 0:00 EDT) Pathology Report: CYTOPATHOLOGY REPORT Reports generated via electronic interface contain original data; however they are lacking the format of the original report. Caution should be taken when reading/interpreti ng unformatted reports. Name: ? KATI DEL RIO ? Accession #: ? [id number] : ? 1980 (Age: 25) ??F ?Collect Date: ? 09/08/2005 Location: ? [facility] ? Receive Date: ? 09/11/2005 Provider: ?FALGUNI GRULLON CNM Copy to: ? Specimen/Source: ?ThinPrep Pap Test, Cervix/Endocervix, processed on [employer] ThinPrep Imaging System, with manual evaluation Last Menstrual Period: ? 08/28/05 Other: ? HPVA - HPV testing requested if ASC-US on the current ThinPrep Pap test. ? SPECIMEN ADEQUACY ? Satisfactory for Evaluation - transformation zone component present GENERAL CATEGORIZATION ? Negative for Intraepithelial Lesion or Malignancy ? Document reviewed and electronically signed by: ? EVERTON Sutherland(ASCP) ? Report Date: ??09/13/2005 11:29 End of Report [facility] 09/08/2005 09/11/2005 us Falguni Grullon CNM PATHOLOGY ORDERABLES Final Resul t [facility] [address] [place] [address] documented in this encounter Visit Diagnoses Not on filedocumented in this encounter
--- OUTSIDE RECORDS SUMMARY | 2024-02-15 19:42 | XMS_ITS | Encounter Summary ---
[place] [address] Care Team Providers Care Veterinarian Small Animal Name Role Phone Unavailable Primary Care Provider Unavailabl e Encounter Details Date Type Department Care Team (Late st Contact Info) Description 12/27/2020 Telephone Hematology [place] [phone] Shamika Lantigua Social History Tobacco Use Types Packs/Day Years Used Date Smoking Tobacco: Never Assessed Sex and Gender Information Value Date Recorded Sex Assigned at Not on file Gender Identity Not on file Sexual Orientation Not on file documented as of this encounter Miscellaneous Notes * Telephone Encounter - Shamika Lantigua - 12/27/2020 12:50 PM EST Shanice Del Rio 1980 [id number] Referring provider: Swati Hugo Date of Referral: 12/27/20 Please review outside breast imaging dated: 12/22/20 Reason for exam and clinical history:Right breast calcs Category:4 Questions to be answered:Bx More imaging Sending Institution: [facility] Patient would like treatment at:[facility] Call pt at: No relevant phone numbers on file. documented in this encounter Plan of Treatment Not on file documented as of this encounter Visit Diagnoses Not on filedocumented in this encounter
--- OUTSIDE RECORDS SUMMARY | 2024-02-15 19:42 | XMS_ITS | Encounter Summary ---
Author Organization [facility] [place] [address] Care Team Providers Care Mosaicist Name Role Phone Swati Hugo DO Primary Care Provider Reason for Visit * (Routine) - Closed Specialty Diagnoses / Procedures Referred By Ronald barajas Referred To Contact Radiology Diagnoses Breast calcification, right Procedures Request for 2nd read Mammo Swati Hugo DO [address] [place] [address] [place] [address] Referral ID Status Reason Start Date Expiration Date Visits Re quested Visits Authorized [id number] Closed 12/28/2020 12/28/2021 1 1 Encounter Details Date Type Department Care Team (Latest Contact Info) Description 12/28/2020 10:35 AM EST Ancillary Procedure Radiology Library [place] [phone] Swati Hugo DO [address] [place] [address] [address] [place] [id number] Breast calcification, right Social History Tobacco Use Types Packs/Day Years Used Date Smoking Tobacco: Never Assessed Sex and Gender Information Value Date Recorded Sex Assigned at Not on file Gender Identity Not on file Sexual Orientation Not on file documented as of this encounter Plan of Treatment Not on file documented as of this encounter Procedures Procedure Name Priority Date/Time Associated Diagnosis Comments REQUEST FOR 2ND READ MAMMO Routine 12/28/2020 10:30 AM EST Breast calcification, right documented in this encounter Results * Request for 2nd read Mammo (12/28/2020 10:30 AM EST) Anatomical Region Laterality Modality SO Impressions 12/28/2020 10:59 AM EST Indeterminate fine pleomorphic calcifications right breast 3:00 radian 4 cm from the nipple spanning 2.3 cm. RECOMMENDATION: Jan guided core biopsy. Our facility will coordinate this with the patient. BI-RADS Category 4: Suspicious Finding - Biopsy Should Be Considered Please note: The interpretation of the [facility] Breast Imaging Radiologist subspecialist may differ from the original radiologist's interpretation. This is usually not due to a deficiency of the original interpreting radiologist, rather due to the greater skill level afforded by sub-specialization in the field and/or reasonable variations in interpretations. If you have a concern regarding the D-H interpretation you may contact the D-[facility] Breast Shade Classifier Office at . Thank you for letting us participate in the care of this patient. ??If you are a health care provider and have any questions regarding this report, please contact the number below. ??For patients who have questions please contact the health long term care administrator that requested your imaging first. ? Electronically signed by: Jolanta Woo MD, [facility] ([phone]), at 12/28/2020 10:59 AM Narrative 12/28/2020 10:59 AM EST INTERPRETATION OF OUTSIDE BREAST IMAGING I have been asked to consult on this patient by Dr. Swati Hugo because he/she believes a review of this study may change or alter the care of this patient. STUDIES FROM: [facility] DATES: 12/22/2020 CLINICAL HISTORY: BX? MORE IMAGING?; Sending Institution [facility]; Date of exam [id number]; I believe a reinterpretation of this exam may alter care of Patient. Yes; RIGHT BREAST CALCS. CAT 4.. ?? COMPARISONS: 12/03/2020 FINDINGS: Spot compression magnification CC and spot compression magnification MLO views were obtained in addition to standard spot compression views in the same projections, including 2-D and 3-D tomosynthesis. This imaging demonstrates indeterminate fine pleomorphic calcifications in the right medial breast middle third, approximate 3:00 radian, 4 cm from the nipple spanning 2.3 cm. Procedure Note Jolanta Woo MD - 12/28/2020 INTERPRETATION OF OUTSIDE BREAST IMAGING I have been asked to consult on this patient by Dr. Swati Hugo becausehe/she believes a review of this study may change or alter the care of thispatient. STUDIES FROM: [facility] DATES: 12/22/2020 CLINICAL HISTORY: BX? MORE IMAGING?; Sending Institution [facility]; Date of exam [id number]; I believe a reinterpretation ofthis exam may alter care of Patient. Yes; RIGHT BREAST CALCS. CAT 4.. COMPARISONS: 12/03/2020 FINDINGS: Spot compression magnification CC and spot compression magnification MLOviews were obtained in addition to standard spot compression views in the same projections, including 2-D and 3-D tomosynthesis. This imaging demonstrates indeterminate fine pleomorphic calcifications inthe right medial breast middle third, approximate 3:00 radian, 4 cm from thenipple spanning 2.3 cm. IMPRESSION Indeterminate fine pleomorphic calcifications right breast 3:00 radian 4cm from the nipple spanning 2.3 cm. RECOMMENDATION: Jan guided core biopsy. Our facility will coordinate this with thepatient. BI-RADS Category 4: Suspicious Finding - Biopsy Should Be Considered Please note: The interpretation of the [facility] BreastImaging Radiologist subspecialist may differ from the original radiologist's interpretation. This is usually not due to a deficiency of the original interpreting radiologist, rather due to the greater skill level affordedby sub-specialization in the field and/or reasonable variations ininterpretations. If you have a concern regarding the D-H interpretation [facility] at . Thank you for letting us participate in the care of this patient. If youare a health care provider and have any questions regarding this report,please contact the number below. For patients who have questions please contactthe health long term care administrator that requested your imaging first. Swati Hugo DO IMG OUTSIDE INTERPRE TATION ORDERABLES documented in this encounter Visit Diagnoses Diagnosis Breast calcification, right Other (abnormal) findings on radiological examination of breast documented in this encounter Care Teams Mosaicist Relationship Specialty Start Date End Date Swati Hugo DO [address] [place] [address] [place] [address] PCP - General Obstetrics and Gynecology 12/31/20 documented as of this encounter
--- OUTSIDE RECORDS SUMMARY | 2024-02-15 19:42 | XMS_ITS | Encounter Summary ---
Author Organization [facility] [place] [address] Care Team Providers Care Vehicle Operator Technician Name Role Phone Unavailable Primary Care Provider Unavailabl e Encounter Details Date Type Department Care Team (Late st Contact Info) Description 12/22/2020 Ancillary Procedure Radiology Library at [facility] [place] [phone] Swati Hugo DO [address] [place] [address] [place] [address] Social History Tobacco Use Types Packs/Day Years [...] Comments FILM LIBRARY STORAGE ONLY MAMMO Routine 12/22/2020 12:00 AM EST documented in this encounter Results * Film Library- Storage Only Mammo (12/22/2020 12:00 AM EST) Narrative RAD - 12/27/2020 2:00 PM EST This exam is auto-finalizing. It's purpose is for storage only. Swati MORATAYA FILM LIBRARY ORD ERABLES [facility] [place] documented in this encounter Visit Diagnoses Not on filedocumented in this encounter
--- NOTE | 2024-02-15 20:50 | NUR.NOTE ---
Nursing Note: Patient was sent home with erythromycin ophthalmic ointment as well as tetracaine.She called asking for clarity on dosing and instructions. Clarified with provider that patient can use both tetracaine and erythromycin both tonight, waiting a few minutes between drops and then applying the ointment. Patient also had questions about how many days she should use the ointment as directions on the box of medication said 7 days and discharge instructions said 5 days. Advised the patient that she should follow the discharge instructions and use the erythromycin for 5 days. Patient stated understanding.
== END 2024-02-15 19:55 | disposition home or self-care (01) ==
PROVIDERS: Emergency Provider Physician Assistant
DX: S05.01XA Injury of conjunctiva and corneal abrasion without foreign body, right eye, initial encounter (principal); Z23 Encounter for immunization; W22.8XXA Striking against or struck by other objects, initial encounter; Y93.H2 Activity, gardening and landscaping; Y92.017 Garden or yard in single-family (private) house as the place of occurrence of the external cause
CPT/HCPCS: 90471; 90715; 99283

== ENCOUNTER 2024-06-16 14:46 | Outpatient (REF) | payer BC, SELFPAY ==
--- NOTE | 2024-06-16 14:00 | PAPFT_PTH ---
PATIENT: Shanice Del Rio LOC: [facility] U#:[id number] AGE/SX: 44/F ROOM: RE06/16/[address]: Valeri Sterling NP : 1980 BED: DIS: 06/16/2024 SPEC #: [id number] RECD: 06/16/24 17:58 STATUS: FER REQ #: [id number] SARAH BETH: 06/16/24 14:[address]: Asher OCAMPO,Valeri DEPT: [facility] Cytology RECD BY: Candi Ornelas ENTERED: 06/16/24 17:58 SP TYPE: PAPFT OT DR: None Tissues: 1 - CX/ENDOCX FOR PAP SMEARS Procedures: PAP THIN PREP/UVM Screening HPV DNA PROBE Comments: [id number] (HPV 16 & 18/45)
== END 2024-06-16 14:47 | disposition home or self-care (01) ==
LOC: LBN 14:46
PROVIDERS: Visit Provider Nurse Practitioner Women's Health
DX: Z12.4 Encounter for screening for malignant neoplasm of cervix (principal)
CPT/HCPCS: 88142; 87624

== ENCOUNTER 2024-06-16 15:05 | Outpatient (CLI) | payer BC, SELFPAY ==
[2024-06-16 14:57] LABS: HCT 42.8 % (36.0-46.0); HGB 14.5 g/dL (11.2-15.7); MCH 28.5 pg (27.0-33.0); MCHC 33.9 % (32.0-36.0); MCV 84 fL (80-95); MPV 8.2 fL (8.0-11.0); Platelet Count 265 10^3/uL (130-400); RBC 5.08 10^6/uL (3.93-5.22); RDW 14.1 % (11.7-14.6); RDW-SD 43.4 fL; WBC 11.15 10^3/uL (4.4-10.8)
[2024-06-16 16:17] LABS: ALT 18 U/L (14-59); AST 22 U/L (15-37); Albumin 4.4 g/dL (3.4-5.0); Alkaline Phosphatase 59 U/L (46-116); Anion Gap 11.2 mmol/L (3-11); BUN 12 mg/dL (7-18); Bilirubin, Total 0.4 mg/dL (0.2-1.0); CO2 24.8 mmol/L (21.0-32.0); CREATININE 0.7 mg/dL (0.55-1.02); Calcium 9.9 mg/dL (8.5-10.1); Chloride 103 mmol/L (98-107); Glucose 96 mg/dL (74-106); Potassium 3.8 mmol/L (3.5-5.1); Sodium 139 mmol/L (136-145); TSH (W/Ref FT4) 1.48 uIU/mL (0.36-3.74); Total Protein 7.9 g/dL (6.4-8.2)
[2024-06-17 19:12] LABS: Calculated LDL 106 mg/dL (<100); Cholesterol 195 mg/dL (<200); HDL Cholesterol 75 mg/dL (>or=50); Triglyceride 73 mg/dL (<150)
== END 2024-06-16 15:06 | disposition home or self-care (01) ==
LOC: LBO 15:07
PROVIDERS: Visit Provider Nurse Practitioner Women's Health
DX: Z01.419 Encounter for gynecological examination (general) (routine) without abnormal findings (principal)
CPT/HCPCS: 36415; 80053; 80061; 85027; 84443

== ENCOUNTER 2024-07-16 01:53 | Outpatient (CLI) | payer BC, SELFPAY ==
--- NOTE | 2024-07-16 07:30 | DI.US_ITS ---
Exam(s) US AXILLA LT EXAM: US AXILLA LT CLINICAL HISTORY: pain in left armpit,M79.622 TECHNIQUE: Ultrasound left axilla performed using standard protocol. COMPARISON: No exams were available for comparison FINDINGS: The palpable area of concern in the left mid axilla corresponds to a 2.6 x 0.7 x 2.0 cm sonographical ly benign-appearing lymph node. No other suspicious cystic or solid lesions are seen. IMPRESSION: The palpable area in the left axilla corresponds to a sonographically benign-appearing lymph node. DATA REPOSITORY:
--- NOTE | 2024-07-16 07:30 | DI.MAMMO_ITS ---
Exam(s) MAMMO SCREENING EXAM: MAMMO SCREENING CLINICAL HISTORY: screening,Z12.39 TECHNIQUE: Bilateral full field digital CC and MLO mammographic images were obtained with 3D tomosyn thesis and utilizing computer aided detection (CAD). COMPARISON: Comparison is made with prior examinations. FINDINGS: Masses/Architectural Distortion: No suspicious masses or areas of architectural distortion are presen t. There is a new ovoid density in the upper-outer quadrant of the left breast measuring a probable 3.5 cm in diameter. It is fairly well-circumscribed. Since the prior examination the patient has hooper d a biopsy of the right breast. There is a biopsy clip in place. Microcalcifications: No suspicious pleomorphic-type are seen. Skin Thickening/Nipple Retraction: None. IMPRESSION: 1. New ovoid density in the upper outer quadrant of the left breast. 2. Spot compression views are requested. Left breast ultrasound should be obtained at that time. BI-RADS Category 0 - Incomplete: Need additional imaging evaluation Breast Density - Category D - The breast are extremely dense, which lowers the sensitivity of the drew mography. Breast density Category C or D implies that the patient has dense breast tissue. Dense breast tissue can make it harder to find cancer on a mammogram. Dense breast tissue is also associated with an incr eased risk of breast cancer. This information about the result of the mammogram report was provided to the patient to raise their awareness. Use this report when you speak with the patient about their risks for breast cancer, which includes their family history. At that time, you may recommend additional screening tests (Ultrasoun d or MRI) as these tests may add significant information. A negative radiographic report should not delay biopsy if a dominant or clinically suspicious mass is present. Up to ten percent of cancers are not identified on mammography. A negative report may reinforce clinical impression. Adenosis and dense breasts may obscure an underlying neoplasm. False positive reports average 6 to 10%. Patient will receive a letter notifying them of these results.
== END 2024-07-16 02:13 ==
PROVIDERS: Visit Provider Nurse Practitioner Women's Health
DX: Z12.31 Encounter for screening mammogram for malignant neoplasm of breast (principal); M79.622 Pain in left upper arm; R92.343 Mammographic extreme density, bilateral breasts
CPT/HCPCS: 76642; 77063; 77067

== ENCOUNTER 2024-07-18 00:22 | Outpatient (CLI) | payer BC, SELFPAY ==
--- NOTE | 2024-07-18 | DI.US_ITS ---
Exam(s) MG MAMMO SCREEN CALL BACK UNI US BREAST LT COMPLETE EXAM: MG MAMMO SCREEN CALL BACK UNI-LEFT AND COMPLETE LEFT BREAST ULTRASOUND CLINICAL HISTORY: F/U MAMMO,NEW OVOID DENSITY UOQ LT BREAST,MR92.8. TECHNIQUE: Unilateral LEFT BREAST spot mammographic images obtained with 3D tomosynthesisand utilizing computer aided detection (CAD). . Complete LEFT breast Ultrasound was also performed, including all 4 quadrants, the retroareolar region, and the ipsilateral axilla. COMPARISON: Prior mammograms were reviewed. This additional imaging was performed due to findings described on the recent screening mammogram of 07/16/2024. FINDINGS: DIAGNOSTIC MAMMOGRAM: Additional mammographic views performed todaydoes not completely dissipate this finding the upper quadrant of the left breast. Proceeded with ultrasound COMPLETE LEFT BREAST ULTRASOUND: Ultrasound performed today reveals a 3 millimeter 9 microcyst at the 2 o'clock position. Also at the 2 o'clock position is a small conglomeration of microcysts measuring 8 x 4 mm.. At the 2 o'clock position (area of concern on the mammogram) there is some dense asymmetric tissue with benign appearance but no evidence of cysts nor discernible solid mass. Remainder of the 4 quadrants of the left breast appear unremarkable Scanning of the ipsilateral axilla reveals no significant adenopathy. IMPRESSION: 1. Benign-appearing dense tissue in the upper outer quadrant 2 o'clock position which appears to correspond to the finding on the mammogram. There is no solid lesion seen at this level nor elsewhere in the breast. 2. Benign-appearing microcysts and conglomeration microcysts at the 2 o'clock position incidentally noted. Appropriate follow-up as discussed by myself with the patient today is repeat left breast imaging in 6 months including repeat mammogram and ultrasound. Earlier imaging would be recommended if there is a self detected breast change noted.. The patient was informed of these findings and recommendations by myself prior to leaving the department today. BI-RADS Category 3 - 6 month - Probably Benign Finding: Recommend follow-up mammography in 6 months Breast Density - Category C - The breast are heterogeneously dense, which may obscure small masses. Breast density Category C or D implies that the patient has dense breast tissue. Dense breast tissue can make it harder to find cancer on a mammogram. Dense breast tissue is also associated with an increased risk of breast cancer. This information about the result of the mammogram report was provided to the patient to raise their awareness. Use this report when you speak with the patient about their risks for breast cancer, which includes their family history. At that time, you may recommend additional screening tests (Ultrasound or MRI) as these tests may add significant information. A negative radiographic report should not delay biopsy if a dominant or clinically suspicious mass is present. Up to ten percent of cancers are not identified on mammography. A negative report may reinforce clinical impression. Adenosis and dense breasts may obscure an underlying neoplasm. False positive reports average 6 to 10%. Patient will receive a letter notifying them of these results.
== END 2024-07-18 00:42 ==
LOC: DI 00:22
PROVIDERS: Visit Provider Nurse Practitioner Women's Health
DX: Z12.31 Encounter for screening mammogram for malignant neoplasm of breast (principal); R92.8 Other abnormal and inconclusive findings on diagnostic imaging of breast; R92.333 Mammographic heterogeneous density, bilateral breasts; D24.2 Benign neoplasm of left breast
CPT/HCPCS: 76642; 77063; 77067

== ENCOUNTER → 2025-01-22 00:19 | Outpatient (CLI) | payer BC, SELFPAY ==
--- NOTE | 2025-01-22 08:15 | DI.US_ITS ---
Exam(s) US BREAST LT COMPLETE MG MAMMO DIAGNOSTIC UNI EXAM: MG MAMMO DIAGNOSTIC UNI and U/S breast LT complete CLINICAL HISTORY: 6 month f/u L breast,abnl lt mammo,r92.8. TECHNIQUE: Craniocaudal and mediolateral oblique Full Field Digital Mammography views of the left breast with Computer Aided Diagnosis followed by Tomosynthesis and complete left breast ultrasound. All 4 quadrants were evaluated sonographically including the axilla and retroareolar regions. COMPARISON: Comparison is made with prior examinations. FINDINGS: Mammography/Tomosynthesis: Masses/Architectural Distortion: There are no suspicious masses or areas of architectural distortion noted. Microcalcifictions: No suspicious pleomorphic-type are seen. Skin Thickening/Nipple Retraction: None. Complete left breast US: Echotexture: Normal appearance of the glandular tissue. Shadowing: No suspicious foci. Cyst: There are stable cysts seen at the 2 o'clock and 7 o'clock positions. There are no suspicious cystic masses present. Solid lesions: None seen. Ductal dilation: None. IMPRESSION: 1. No evidence of malignancy is noted. 2. Unless there is more urgent need, follow-up screening mammography is recommended, as per [place] [employer] guidelines. 3. The findings were discussed with the patient on the date of the examination. BI-RADS Category 2 - Benign Findings Breast Density - Category C - The breast are heterogeneously dense, which may obscure small masses. Breast density Category C or D implies that the patient has dense breast tissue. Dense breast tissue can make it harder to find cancer on a mammogram. Dense breast tissue is also associated with an increased risk of breast cancer. This information about the result of the mammogram report was provided to the patient to raise their awareness. Use this report when you speak with the patient about their risks for breast cancer, which includes their family history. At that time, you may recommend additional screening tests (Ultrasound or MRI) as these tests may add significant information. A negative radiographic report should not delay biopsy if a dominant or clinically suspicious mass is present. Up to ten percent of cancers are not identified on mammography. A negative report may reinforce clinical impression. Adenosis and dense breasts may obscure an underlying neoplasm. False positive reports average 6 to 10%. Patient will receive a letter notifying them of these results.
== END ==
LOC: DI 00:19
PROVIDERS: Visit Provider Nurse Practitioner Women's Health
DX: R92.8 Other abnormal and inconclusive findings on diagnostic imaging of breast (principal); Z12.31 Encounter for screening mammogram for malignant neoplasm of breast
CPT/HCPCS: 76642; 77061; 77065; G0279